=== PATIENT | male | born 1990 | race Caucasian/White ===

== ENCOUNTER 2018-01-26 10:24 | Emergency (ER) | payer OTHER ==
[2018-01-26 10:40] VITALS: BP 135/95; PULSE 86; O2SAT 97
--- NOTE | 2018-01-26 11:35 | ERPHSYRPT ---
- History of Present Illness Time Seen by Provider: 01/26/18 11:30 Source: patient Exam Limitations: no limitations Patient Subjective Stated Complaint: pt reports he dropped a couch onto left arm over a week ago-reports pain to extremity since then Triage Nursing Assessment: pt pink warm and [id number]-[id number] pink warm and dry-slight swelling noted to wrist-pulse present and strong-cap refill 3 seconds Physician History: The patient is a 27-year-old right-handed male complaining that he hurt his left wrist while moving a couch one week ago. He states he was lifting the couch, tripped and fell backwards, and the couch landed on his left wrist. He has tried ice and heat wrist as well as taking Tylenol all without relief. He denies numbness or tingling. It is hard for him to supinate and pronate his left wrist. His past medical history is significant for psychiatric disorder. Occurred: last week Method of Injury: direct blow, fell Quality: constant, sharpness Severity of Pain-Max: moderate Severity of Pain-Current: moderate Extremities Pain Location: wrist: left Modifying Factors: Improves With: cold therapy, pain medication Associated Symptoms: none Allergies/Adverse Reactions: escitalopram [From Lexapro] Allergy (Verified 01/26/18 10:40) penicillin G Allergy (Verified 01/26/18 10:40) Home Medications: Clonazepam 0.5 mg [Klonopin 0.5 MG] 0.5 mg PO DAILY 01/26/18 [History] Hx Tetanus, Diphtheria Vaccination/Date Given: Yes Hx Influenza Vaccination/Date Given: No Hx Pneumococcal Vaccination/Date Given: No Immunizations Up to Date: Yes - Review of Systems Constitutional: No Fever, No Chills Eyes: No Symptoms Ears, Nose, & Throat: No Symptoms Respiratory: No Cough, No Dyspnea Cardiac: No Chest Pain, No Edema, No Syncope Abdominal/Gastrointestinal: No Abdominal Pain, No Nausea, No Vomiting, No Diarrhea Genitourinary Symptoms: No Dysuria Musculoskeletal: Fall, Injury, Joint Pain, Joint Swelling Skin: No Rash Neurological: No Dizziness, No Focal Weakness, No Sensory Changes Psychological: No Symptoms Endocrine: No Symptoms Hematologic/Lymphatic: No Symptoms Immunological/Allergic: No Symptoms All Other Systems: Reviewed and Negative - Past Medical History Pertinent Past Medical History: Yes Neurological History: No Pertinent History ENT History: No Pertinent History Cardiac History: No Pertinent History Respiratory History: Emphysema Endocrine Medical History: No Pertinent History Musculoskeletal History: Arthritis GI Medical History: No Pertinent History History: No Pertinent History Psycho-Social History: Bipolar, Depression, Other Male Reproductive Disorders: No Pertinent History Other Medical History: adhd. odd - Past Surgical History Past Surgical History: Yes Musculoskeletal: Orthopedic Surgery Other Surgical History: bilateral carpal tunnel - Social History Smoking Status: Current some day smoker How long have you smoked: yrs Exposure to second hand smoke: Yes Drug Use: none Patient Lives Alone: No - Nursing Vital Signs Nursing Vital Signs: Initial Vital Signs Temperature 97.9 F 01/26/18 10:36 Pulse Rate 86 01/26/18 10:36 Respiratory Rate 18 01/26/18 10:36 Blood Pressure 135/95 01/26/18 10:36 O2 Sat by Pulse Oximetry 97 01/26/18 10:36 Pain Scale Pain Intensity 10 - Physical Exam General Appearance: no apparent distress, alert Eyes, Ears, Nose, Throat Exam: moist mucous membranes Neck Exam: non-tender, supple Cardiovascular/Respiratory Exam: chest non-tender, normal breath sounds, regular rate/rhythm, no respiratory distress Abdominal Exam: non-tender, No guarding Back Exam: normal inspection, No vertebral tenderness Shoulder Exam: normal inspection Elbow/Forearm Exam: normal inspection Wrist Exam: limited ROM, pain (pain, limited ROM, and mild swelling to left wrist), swelling Hand Exam: normal inspection Neuro/Tendon Exam: normal sensation, normal motor functions Mental Status Exam: alert, oriented x 3, cooperative Skin Exam: normal color, warm, dry SpO2 Interpretation: normal SpO2: 97 Oxygen Delivery: Room Air - Radiology Exams Left Wrist X-ray Interpretation: Interpreted by me, Negative, No Fracture Ordered Tests: Active Orders 24 hr Category Date Time Status WRIST (MIN 3 VIEWS) Stat Exams 01/26/18 11:38 Ordered - Progress Progress: improved Counseled pt/family regarding: diagnosis, rad results - Departure Time of Disposition: 11:54 Departure Disposition: Home Clinical Impression: Left wrist sprain Condition: Stable Critical Care Time: No Additional Instructions: You have a sprain to your left wrist. You have no broken bones. You were given Toradol 60 mg IM in the ER. You may continue to take naproxen 500 mg twice a day as needed. Wear the wrist splint as needed for comfort. Follow-up with your primary medical doctor as needed. Prescriptions: Naproxen 500 mg PO BID PRN #30 tablet.
[2018-01-26] MEDS ORDERED: TORAdol 30 mg Injection IM ONE (11:54)
[2018-01-26] MEDS ORDERED: TORAdol 30 mg Injection ONE (11:59)
--- NOTE | 2018-01-26 21:11 | XRAY ---
Indication: Pain following injury one week ago. Comparison: None 3 views of the left wrist obtained. No bony, articular, or soft tissue abnormalities.
== END 2018-01-26 12:11 | disposition home or self-care (01) ==
LOC: ED 10:24
DX: S63.502A Unspecified sprain of left wrist, initial encounter (principal); W01.190A Fall on same level from slipping, tripping and stumbling with subsequent striking against furniture, initial encounter
CPT/HCPCS: 73110; 96372; 99284; J1885; L3908

== ENCOUNTER 2018-03-03 23:10 | Emergency (ER) | payer OTHER ==
--- NOTE | 2018-03-03 23:22 | ERPHSYRPT ---
- History of Present Illness Time Seen by Provider: 03/03/18 23:17 Source: patient, police Exam Limitations: no limitations Physician History: 27 y/o white male with h/o bipolar disorder brought into ER by police for immediate snf because he was injuring himself(hitting his head by punching himself). he and his sig other were arguing prior to police arriving. additionally, his sig other reports pt threatened to stab others and was wielding a knife. pt has been off his medications. pt is a patient of [facility]. he denies illicit drug use. he denies suicidal and homicidal issues although police gave us above hx. pt denies cp, soa, abd pain. denies headache Timing/Duration: today Severity of Symptoms-Max: moderate Severity of Symptoms-Current: mild Context related to: significant other Suicidal thoughts: other (no) Associated Symptoms: agitated, hostile Previous symptoms: same symptoms as today Allergies/Adverse Reactions: escitalopram [From Lexapro] Allergy (Verified 01/26/18 10:40) penicillin G Allergy (Verified 01/26/18 10:40) Home Medications: Lurasidone HCl [Latuda] 80 mg PO DAILY 03/03/18 [History] Hx Tetanus, Diphtheria Vaccination/Date Given: Yes Hx Influenza Vaccination/Date Given: No Hx Pneumococcal Vaccination/Date Given: No - Past Medical History Pertinent Past Medical History: Yes Neurological History: No Pertinent History ENT History: No Pertinent History Cardiac History: No Pertinent History Respiratory History: Emphysema Endocrine Medical History: No Pertinent History Musculoskeletal History: Arthritis GI Medical History: No Pertinent History History: No Pertinent History Psycho-Social History: Bipolar, Depression, Other Male Reproductive Disorders: No Pertinent History Other Medical History: adhd. odd - Past Surgical History Past Surgical History: Yes Neuro Surgical History: No Pertinent History Cardiac: No Pertinent History Respiratory: No Pertinent History Gastrointestinal: No Pertinent History Genitourinary: No Pertinent History Musculoskeletal: Orthopedic Surgery Other Surgical History: bilateral carpal tunnel - Social History Smoking Status: Current some day smoker How long have you smoked: yrs Exposure to second hand smoke: Yes Drug Use: none Patient Lives Alone: No - Review of Systems Constitutional: No Symptoms, No Fever, No Chills Eyes: No Symptoms, No Discharge, No Eye Pain Ears, Nose, & Throat: No Symptoms, No Ear Pain, No Ear Discharge Respiratory: No Symptoms, No Cough, No Dyspnea, No Stridor, No Wheezing Cardiac: No Symptoms, No Chest Pain, No Palpitations, No Syncope Abdominal/Gastrointestinal: No Symptoms, No Nausea, No Vomiting, No Diarrhea Genitourinary Symptoms: No Symptoms, No Dysuria, No Frequency, No Hematuria Musculoskeletal: No Symptoms, No Back Pain, No Neck Pain, No Fall Skin: No Symptoms Neurological: No Symptoms Psychological: No Symptoms Endocrine: No Symptoms Hematologic/Lymphatic: No Symptoms Immunological/Allergic: No Symptoms All Other Systems: Reviewed and Negative - Nursing Vital Signs Nursing Vital Signs: Initial Vital Signs Temperature 98.2 F 03/03/18 23:13 Pulse Rate 91 H 03/03/18 23:13 Respiratory Rate 18 03/03/18 23:13 Blood Pressure 127/83 03/03/18 23:13 O2 Sat by Pulse Oximetry 95 03/03/18 23:13 Pain Scale Pain Intensity 0 - Physical Exam General Appearance: no apparent distress, alert, anxiety Eyes, Ears, Nose, Throat Exam: normal ENT inspection Neck Exam: normal inspection, non-tender, supple, full range of motion Respiratory Exam: normal breath sounds, lungs clear, airway intact, No chest tenderness, No respiratory distress, No wheezing, No stridor Cardiovascular Exam: regular rate/rhythm, normal heart sounds, normal peripheral pulses Gastrointestinal/Abdominal Exam: soft, normal bowel sounds, No tenderness, No guarding, No rebound Extremities Exam: normal inspection, normal range of motion, evidence of injury Neurological Exam: alert, normal mood/affect, calm, distresser II-XII nml as tested, oriented x 3 Appearance: appropriate appearance, no memory impairment Behavior/Eye Contact/Speech: alert & cooperative, normal speech Thoughts/Hallucinations: normal thought pattern Skin Exam: normal color, warm, dry SpO2 Interpretation: normal Oxygen Delivery: Room Air - Course Nursing assessment & vital signs reviewed: Yes EKG Interpreted by Me: RATE (86), Sinus Rhythm, Right Land[place] Deviation, NORMAL INTERVALS, NORMAL ST-T Ordered Tests: Active Orders 24 hr Category Date Time Status EKG-ER Only STAT Care 03/03/18 23:25 Active Psychiatric Evaluation STAT Care 03/03/18 23:25 Active ACETAMINOPHEN Stat Lab 03/03/18 23:53 Completed ETHYL ALCOHOL Stat Lab 03/03/18 23:53 Completed SALICYLATE Stat Lab 03/03/18 23:53 Completed UA W/RFX UR CULTURE Stat Lab 03/04/18 00:18 Completed Urine Triage Profile Stat Lab 03/04/18 00:18 Completed Lab/Rad Data: Laboratory Results 03/04/18 03/04/18 03/03/18 Range/Units 00:18 00:18 23:53 Ur Collection Type VOID Urine Color YELLOW (YELLOW) Urine Appearance CLEAR (CLEAR) Urine pH 0 (5-6) Ur Specific [place] 1.025 (1.005-1.025) Urine Protein NEGATIVE (Negative) Urine Ketones NEGATIVE (NEGATIVE) Urine Blood NEGATIVE (0-5) [place]/ul Urine Nitrite NEGATIVE (NEGATIVE) Urine Bilirubin NEGATIVE (NEGATIVE) Urine Urobilinogen NORMAL (0-1) mg/dL Ur Leukocyte Esterase NEGATIVE (NEGATIVE) Urine Culture Reflexed NO (NO) Urine Glucose NEGATIVE (NEGATIVE) mg/dL Salicylates < 1.0 L (2-20) mg/dL Urine Opiates Level NEGATIVE (NEGATIVE) Ur Methadone NEGATIVE (NEGATIVE) Acetaminophen < 10 L (10-30) ug/ml Urine Barbiturates NEGATIVE (NEGATIVE) Ur Phencyclidine (PCP) NEGATIVE (NEGATIVE) Urine Amphetamine NEGATIVE (NEGATIVE) U Benzodiazepine Level POSITIVE (NEGATIVE) Urine Cocaine NEGATIVE (NEGATIVE) Urine Marijuana (THC) NEGATIVE (NEGATIVE) Ethyl Alcohol < 10 (0-10) mg/dL Specimen Received 03/04/18 0005 - Progress Progress: unchanged Progress Note: 03/04/18 04:30 at approx 0411 [facility] accepts pt for admission at the recommendation from [facility] review of information. dr. cornel somers at [facility] accepts pt. 03/04/18 04:36 after police dropped pt off, pt became a bit more agitated when he determined his sig other left him and blocked him from phone and facebook. pt stated he was going to immediately leave here when released go to his home to collect his possessions and go straight to [place] this am Counseled pt/family regarding: lab results, diagnosis - Departure Time of Disposition: 04:33 Departure Disposition: Transfer Clinical Impression: Bipolar 1 disorder, Suicidal risk, Homicidal ideation Condition: Stable Critical Care Time: No Referrals: Provider,Unknown [Primary Care Provider] -
[2018-03-03 23:28] VITALS: BP 127/83; PULSE 91; O2SAT 95
[2018-03-04 00:17] LABS: ACETAMINOPHEN < 10 ug/ml (10-30); ETHYL ALCOHOL < 10 mg/dL (0-10); SALICYLATE < 1.0 mg/dL (2-20)
[2018-03-04 00:21] LABS: Appearance CLEAR (CLEAR); Bilirubin NEGATIVE (NEGATIVE); Blood NEGATIVE Ery/ul (0-5); Glucose NEGATIVE (NEGATIVE); Ketones NEGATIVE (NEGATIVE); Leukocyte Esterase NEGATIVE (NEGATIVE); Nitrite NEGATIVE (NEGATIVE); Ph 0 (5-6); Protein,Urine Dip NEGATIVE (Negative); Specific Gravity 1.025 (1.005-1.025); Urobilinogen NORMAL mg/dL (0-1)
[2018-03-04 00:37] LABS: Amphetamine,Urine NEGATIVE (NEGATIVE); Barbiturate,Urine NEGATIVE (NEGATIVE); Benzodiazepine,Urine POSITIVE (NEGATIVE); Cocaine,Urine NEGATIVE (NEGATIVE); Methadone,Urine NEGATIVE (NEGATIVE); Opiate,Urine NEGATIVE (NEGATIVE); PCP,Urine NEGATIVE (NEGATIVE); THC,Urine NEGATIVE (NEGATIVE)
[2018-03-04 05:16] LABS: ALBUMIN 4.2 g/dL (3.5-5.0); ALKALINE PHOSPHATASE 94 U/L (38-126); ANION GAP 13.2 MEQ/L (5-15); BLOOD UREA NITROGEN 14 mg/dL (9-20); CHLORIDE 107 mmol/L (98-107); Calcium 9.8 mg/dL (8.4-10.2); Carbon Dioxide 26 mmol/L (22-30); Creatinine 1 0.96 mg/dL (0.66-1.25); Glucose 95 mg/dL (74-106); Potassium 3.8 mmol/L (3.5-5.1); SGOT/AST 24 U/L (17-59); SGPT/ALT 30 U/L (0-50); SODIUM 143 mmol/L (137-145); Total Protein 6.8 g/dL (6.3-8.2)
[2018-03-04 05:17] LABS: BASOPHIL % 0.3 % (0.0-0.4); Basophil (Absolute #) 0.02 (0-0.4); Eosinophil % 2.5 % (0.00-5.0); Eosinophil (Absolute #) 0.19 (0-0.5); Granulocyte Absolute (ANC) 4.61 (1.4-6.9); Granulocytes % 61.8 % (36.0-66.0); Hematocrit 44.3 % (42-50); Hemoglobin 15.8 gm/dl (12.5-18.0); Lymphocyte (Absolute #) 2.19 (1.0-4.6); Lymphocytes % 29.4 % (24.0-44.0); Mean Cell Volume 85.5 fl (78-100); Mean Corpuscular Hemoglobin 30.5 pg (26-32); Mean Corpuscular Hgb Concent. 35.7 g/dl (32-36); Mean Platelet Volume 10.7 fl (6-9.5); Monocyte (Absolute #) 0.45 (0.0-1.3); Platelet Count 177 K/mm3 (150-450); Red Blood Count 5.18 M/mm3 (4.1-5.6); Red Cell Distribution Width 13.3 % (11.5-14.0); White Blood Count 7.5 K/mm3 (4.0-10.5)
== END 2018-03-04 06:00 ==
LOC: ED 23:10
DX: F31.9 Bipolar disorder, unspecified (principal); R45.851 Suicidal ideations; R45.850 Homicidal ideations
CPT/HCPCS: 36415; 80053; 80307; 81002; 85025; 93005; 99284; G0481; G0480

== ENCOUNTER 2018-05-10 21:04 | Emergency (ER) | payer MEDICAID, OTHER ==
--- NOTE | 2018-05-10 21:29 | ERPHSYRPT ---
- History of Present Illness Time Seen by Provider: 05/10/18 21:21 Source: patient, EMS Exam Limitations: no limitations Physician History: The patient is a 28-year-old male with his girlfriend complaining that 2 or 3 days ago he accidentally kicked a heavy metal object while walking in the dark. He now complains of worsening right foot pain. It is hard for him to walk. He has tried ibuprofen and Tylenol without relief. He has iced and elevated his right foot without relief. His past medical history significant for bipolar disorder. Occurred: days ago (3) Reason for Fall: tripped, fell from standing pos Injuries/Pain Location: lower extremity (right foot) Loss of Consciousness: no loss of consciousness Quality: sharpness, stabbing Severity of Pain-Max: severe Severity of Pain-Current: severe Modifying Factors: Improves With: nothing Associated Symptoms (Fall): trouble walking Allergies/Adverse Reactions: escitalopram [From Lexapro] Allergy (Verified 01/26/18 10:40) penicillin G Allergy (Verified 01/26/18 10:40) Home Medications: Lurasidone HCl [Latuda] 80 mg PO DAILY 03/03/18 [History] Hx Tetanus, Diphtheria Vaccination/Date Given: Yes Hx Influenza Vaccination/Date Given: No Hx Pneumococcal Vaccination/Date Given: No - Review of Systems Constitutional: No Fever, No Chills Eyes: No Symptoms Ears, Nose, & Throat: No Symptoms Respiratory: No Cough, No Dyspnea Cardiac: No Chest Pain, No Edema, No Syncope Abdominal/Gastrointestinal: No Abdominal Pain, No Nausea, No Vomiting, No Diarrhea Genitourinary Symptoms: No Dysuria Musculoskeletal: Fall, Injury Skin: No Rash Neurological: No Dizziness, No Focal Weakness, No Sensory Changes Psychological: No Symptoms Endocrine: No Symptoms Hematologic/Lymphatic: No Symptoms Immunological/Allergic: No Symptoms All Other Systems: Reviewed and Negative - Past Medical History Pertinent Past Medical History: Yes Neurological History: No Pertinent History ENT History: No Pertinent History Cardiac History: No Pertinent History Respiratory History: Emphysema Endocrine Medical History: No Pertinent History Musculoskeletal History: Arthritis GI Medical History: No Pertinent History History: No Pertinent History Psycho-Social History: Bipolar, Depression, Other Male Reproductive Disorders: No Pertinent History Other Medical History: adhd. odd - Past Surgical History Past Surgical History: Yes Neuro Surgical History: No Pertinent History Cardiac: No Pertinent History Respiratory: No Pertinent History Gastrointestinal: No Pertinent History Genitourinary: No Pertinent History Musculoskeletal: Orthopedic Surgery Other Surgical History: bilateral carpal tunnel - Social History Smoking Status: Current some day smoker How long have you smoked: yrs Exposure to second hand smoke: Yes Drug Use: none Patient Lives Alone: No - Nursing Vital Signs Nursing Vital Signs: Initial Vital Signs Temperature 99.2 F 05/10/18 21:06 Pulse Rate 98 H 05/10/18 21:06 Respiratory Rate 18 05/10/18 21:06 Blood Pressure 129/91 05/10/18 21:06 O2 Sat by Pulse Oximetry 98 05/10/18 21:06 Pain Scale Pain Intensity 8 - Hope Coma Score Best Eye Response (Maco): (4) open spontaneously Best Verbal Response (Maco): (5) oriented Best Motor Response (Hope): (6) obeys commands Hope Total: 15 - Physical Exam General Appearance: no apparent distress, alert Head Injury: no evidence of injury Eye Exam: PERRL/EOMI ENT Exam: airway nml Neck Exam: normal inspection, No tenderness Respiratory/Chest Exam: normal breath sounds, No chest tenderness, No respiratory distress Cardiovascular Exam: normal heart sounds, regular rate/rhythm Gastrointestinal Exam: soft, No tenderness, No distention, No guarding, No ecchymosis Rectal Exam: not done Back Exam: normal inspection, No vertebral tenderness Extremity Exam: limited range of motion, pain with movement, weight bearing, swelling, tenderness (right foot tenderness, swelling, limited ROM.) Neurologic Exam: alert, oriented x 3, cooperative, sensation nml, No motor deficits Skin Exam: normal color, warm, dry, No ecchymosis SpO2 Interpretation: normal Oxygen Delivery: Room Air - Radiology Exams Right Foot X-ray Interpretation: Interpreted by me, Negative, No Fracture - CT Exams Right Lower Extremity CT Interpretation: Negative, Tele-radiologist Report (per Dr Donnelly), No Fracture Ordered Tests: Active Orders 24 hr Category Date Time Status FOOT (MINIMUM 3 VIEWS) Stat Exams 05/10/18 21:33 Taken LOWER EXTREMITY WO CONTRAST [CT] Stat Exams 05/10/18 22:09 Taken Medication Summary Discontinued Medications Generic Name Dose Route Start Last Admin Trade Name Freq PRN Reason Stop Dose Admin Ketorolac Tromethamine 60 mg 05/10/18 21:34 05/10/18 21:48 Toradol 30 Mg Injection IM 05/10/18 21:35 60 mg STAT ONE Administration Ketorolac Tromethamine Confirm 05/10/18 21:41 Toradol 30 Mg Injection Administered 05/10/18 21:42 Dose 60 mg .ROUTE .STK-MED ONE - Progress Progress: improved Counseled pt/family regarding: diagnosis, need for follow-up, rad results - Departure Time of Disposition: 23:32 Departure Disposition: Home Clinical Impression: Contusion of right foot Condition: Stable Critical Care Time: No Referrals: DOCTOR,NO FAMILY [Primary Care Provider] - Additional Instructions: You have a contusion of your right foot. The CT scan of your right foot and ankle did not show any broken bones. You were given Toradol 60 mg IM in the ER. Take naproxen 500 mg 2 times a day as needed. Take [place] one tablet every 4-6 hours as needed. Apply ice as needed. Use the crutches until the pain has subsided. Elevate your foot as needed. Follow-up with your primary medical doctor as needed. Prescriptions: Naproxen 500 mg PO BID PRN #30 tablet
[2018-05-10] MEDS ORDERED: TORAdol 30 mg Injection IM ONE (21:34)
[2018-05-10] MEDS ORDERED: TORAdol 30 mg Injection ONE (21:41)
[2018-05-10] MEDS ORDERED: NORCO 5/325 MG PO ONE (23:36)
[2018-05-10] MEDS ORDERED: NORCO 5/325 MG ONE (23:43)
[2018-05-10 23:55] VITALS: BP 105/73; PULSE 95; O2SAT 98
--- NOTE | 2018-05-11 09:04 | XRAY ---
Indication: Right foot pain following kicking injury 3 days ago. Comparison: None 3 nonweightbearing views of the right foot demonstrates tiny posterior heel spur. No other bony, articular, or soft tissue abnormalities.
--- NOTE | 2018-05-11 09:08 | XRAY ---
Indication: Midfoot pain and swelling following kicking injury 3 days ago. Multiple contiguous axial images obtained through the right foot. Sagittal and coronal reformatted images obtained. Comparison: None No acute fracture, suspicious bony lesions, dislocation, or radiopaque foreign body. Tiny posterior heel spur. Minimal anterior midfoot soft tissue swelling. Remaining visualized noncontrasted soft tissues unremarkable. Impression: Tiny heel spur and minimal soft tissue swelling. Remaining CT right foot is negative. Comment: Preliminary interpretation was made by [facility]. No discrepancy. CTDI 63.19
== END 2018-05-10 23:55 | disposition home or self-care (01) ==
LOC: ED 21:04
DX: S90.31XA Contusion of right foot, initial encounter (principal); M79.671 Pain in right foot; W01.198A Fall on same level from slipping, tripping and stumbling with subsequent striking against other object, initial encounter; Y93.9 Activity, unspecified
CPT/HCPCS: 73630; 73700; 96372; 99284; J1885; A9270-GY